=== PATIENT | male | born 1955 | race Two or more races ===

== ENCOUNTER 2019-10-22 10:58 | Outpatient (CLI) | payer MEDICAID | END 2019-10-22 12:58 | disposition home or self-care (01) | LOC: PAN 10:58 | DX: R13.10 Dysphagia, unspecified (principal); K21.9 Gastro-esophageal reflux disease without esophagitis | CPT/HCPCS: G0463 ==

== ENCOUNTER 2020-02-06 14:36 | Outpatient (CLI) | payer MEDICAID ==
--- NOTE | 2020-02-06 14:54 | General Progress Note ---
Subjective ROS Limited/Unobtainable: Yes Objective General Appearance: alert EENT: normal ENT inspection Neck: supple Cardiovascular: normal rate Respiratory/Chest: decreased breath sounds Abdomen: normal bowel sounds, non tender, soft Extremities: non-tender Assessment/Plan Assessment/Plan: 1. Diabetes. 2. Hypercholesterolemia. 3. Hypertension 4. Gastroparesis s/p incomplete EGD due to food in the stomach ppi fu endocrinology RTC 3 months Kin Ahmadi MD Feb 06, 2020 14:54
== END 2020-02-06 16:36 | disposition home or self-care (01) ==
LOC: PAN 14:36
DX: E11.9 Type 2 diabetes mellitus without complications (principal); I10 Essential (primary) hypertension; E78.00 Pure hypercholesterolemia, unspecified; K31.84 Gastroparesis
CPT/HCPCS: 99212